=== PATIENT | female | born 1960 | race Caucasian/White ===

== ENCOUNTER 2020-04-16 11:11 | Emergency (ER) | payer SELFPAY ==
[2020-04-16] MEDS ORDERED: TETRACAINE HCL 0.5% OPH SOLN 4 ML OD ONE ×2 (12:14→17:15)
--- NOTE | 2020-04-16 12:16 | ER Document Report ---
ED Medical Screen (RME) - General Chief Complaint: Eye Problem Stated Complaint: EYE,LEG PAIN Notes: Patient is a 59-year-old white female with a history of uncontrolled diabetes on no current treatment and hyperlipidemia who presents to the emergency department the chief complaint of redness and swelling to the right eye. States she woke up that way recently. Reports her pain is a 4 out of 5 in the eye. Denies any history of contact usage or injury to the eye. No history of glaucoma. States that she is been off her diabetes medicines for quite a while, has not been checking her blood sugars regularly. She admits to blurriness in the affected eye. States her mother also noticed a few days ago that her right lower extremity was swollen and she had a red sore. She denies known fever, chills or night sweats. No vomiting or diarrhea. No headache. I have treated and performed a rapid initial assessment of this patient. A comprehensive ED assessment and evaluation of the patient, analysis of test results and completion of medical decision making process will be conducted by additional ED providers. PHYSICAL EXAMINATION: GENERAL: no acute distress. A&Ox4. Answers questions appropriately. Eyes: Right eye moderately injected conjunctiva. Extremity: Right lower extremity mildly swollen compared with the left with a erythematous area to the lateral right lower extremity with a central crusting. TRAVEL OUTSIDE OF THE [place] IN LAST 30 DAYS: No - Related Data Allergies/Adverse Reactions: levofloxacin [From Levaquin] Allergy (Unknown, Verified 04/16/20 12:07) Hives Past Medical History - Social History Chew tobacco use (# tins/day): No Frequency of alcohol use: None Drug Abuse: None Endocrine Medical History: Reports: Hx Diabetes Mellitus Type 2 Musculoskeltal Medical History: Reports Hx Arthritis - Immunizations Hx Diphtheria, Pertussis, Tetanus Vaccination: Yes Physical Exam - Vital signs Vitals: Temp Pulse Resp BP Pulse Ox 98.1 F 54 L 17 173/75 H 94 04/16/20 11:04/16/20 11:04/16/20 11:04/16/20 11:04/16/20 11:17 Course - Vital Signs Vital signs: Temp Pulse Resp BP Pulse Ox 98.1 F 54 L 17 173/75 H 94 04/16/20 11:04/16/20 11:04/16/20 11:17 04/16/20 11:17 04/16/20 11:17
[2020-04-16 13:41] LABS: ABSOLUTE BASOPHILS # (AUTO) 0.1 10^3/uL (0.0-0.2); ABSOLUTE EOSINOPHILS # (AUTO) 0.1 10^3/uL (0.0-0.6); ABSOLUTE LYMPHOCYTES (AUTO) 1.2 10^3/uL (0.5-4.7); ABSOLUTE MONOCYTES (AUTO) 0.4 10^3/uL (0.1-1.4); ABSOLUTE NEUT (AUTO) 4.8 10^3/uL (1.7-8.2); BASOPHILS % (AUTO) 0.8 % (0-2); EOSINOPHILS % (AUTO) 0.9 % (0-6); HEMATOCRIT 40.9 % (36.0-47.0); HEMOGLOBIN 14.1 g/dL (12.0-15.5); LYMPHOCYTES % (AUTO) 18.9 % (13-45); MEAN CORPUSCULAR HEMOGLOBIN 32.5 pg (27.0-33.4); MEAN CORPUSCULAR HGB CONC 34.4 g/dL (32.0-36.0); MEAN CORPUSCULAR VOLUME 95 fl (80-97); MONOCYTES % (AUTO) 5.7 % (3-13); PLATELET COUNT 163 10^3/uL (150-450); RED BLOOD COUNT 4.33 10^6/uL (3.72-5.28); RED CELL DISTRIBUTION WIDTH 12.8 % (11.5-14.0); SEGMENTED NEUTROPHILS % (AUTO) 73.7 % (42-78); TOTAL CELLS COUNTED % (AUTO) 100 %; WHITE BLOOD COUNT 6.6 10^3/uL (4.0-10.5)
[2020-04-16 13:54] LABS: ALBUMIN 3.5 g/dL (3.5-5.0); ALKALINE PHOSPHATASE 84 U/L (38-126); ANION GAP 7 (5-19); ASPARTATE AMINO TRANSFERASE 20 U/L (14-36); BILIRUBIN,TOTAL 0.8 mg/dL (0.2-1.3); BLOOD UREA NITROGEN 14 mg/dL (7-20); CALCIUM 8.7 mg/dL (8.4-10.2); CARBON DIOXIDE 29 mmol/L (22-30); CHLORIDE 97 mmol/L (98-107); GLUCOSE 395 mg/dL (75-110); POTASSIUM 4.7 mmol/L (3.6-5.0); TOTAL PROTEIN 6.8 g/dL (6.3-8.2)
[2020-04-16 14:04] LABS: INTERNATIONAL RATION (INR) 1.08; PROTHROMBIN TIME 14.2 SEC (11.4-15.4)
[2020-04-16 14:05] LABS: PARTIAL THROMBOPLASTIN TIME 31.9 SEC (23.5-35.8)
--- NOTE | 2020-04-16 16:40 | RADIOLOGY REPORT (SQ) ---
EXAM DESCRIPTION: VENOUS UNILATERAL LOWER IMAGES COMPLETED DATE/TIME: 04/16/2020 4:23 pm REASON FOR STUDY: RLE swelling COMPARISON: None. TECHNIQUE: Dynamic and static silvestre scale and color images acquired of the right leg venous system. S elected spectral images acquired with additional compression and augmentation maneuvers. The contrala teral common femoral vein and saphenofemoral junction were also imaged. Images stored on PACS. LIMITATIONS: None. FINDINGS: COMMON FEMORAL: Normal phasicity, compression and augmentation. No visualized echogenic ma terial on silvestre scale. No defects on color images. FEMORAL: Normal compression and augmentation. No visualized echogenic material on silvestre scale. No defe cts on color images. POPLITEAL: Normal compression, augmentation. No visualized echogenic material on silvestre scale. No defec ts on color images. CALF VESSELS: Normal compression, augmentation. No visualized echogenic material on silvestre scale. No de fects on color images. GSV and SSV: Normal compression, augmentation. No visualized echogenic material on silvestre scale. No def ects on color images. ANY DEEP VENOUS INSUFFICIENCY: Not evaluated. ANY EVIDENCE OF POPLITEAL CYST: No. OTHER: No other significant finding. CONTRALATERAL COMMON FEMORAL VEIN AND SAPHENOFEMORAL JUNCTION: Normal phasicity, compression and augmentation. No visualized echogenic material on silvestre scale. No de fects on color images. IMPRESSION: NO EVIDENCE DVT OR SVT IN THE RIGHT LEG. TECHNICAL DOCUMENTATION: JOB ID: [id number] 2010 [employer]- All Rights Reserved Reading location - IP/workstation name: [email or web address]
--- NOTE | 2020-04-16 17:31 | ER Document Report ---
ED General - General Chief Complaint: Eye Problem Stated Complaint: EYE,LEG PAIN Time Seen by Provider: 04/16/20 17:09 Primary Care Provider: AAR TORRES DO [ACTIVE STAFF] - Follow up as needed Notes: 59-year-old female with past medical history of diabetes mellitus presenting today with a wound on her right lower extremity. States her mom noticed it a couple days ago. States that she has diabetic neuropathy and cannot feel anything in her feet. She also reports some swelling of her right lower extre mity. She also states that she has had right thigh pain since Tuesday. States she has pain moving her eyes to the right. Her eyes also been injected. She also notes that she was with some discharge associated with her her eye as well. She does not have a primary care provider. Has not taken her diabetes medication. TRAVEL OUTSIDE OF THE [place] IN LAST 30 DAYS: No - Related Data Allergies/Adverse Reactions: levofloxacin [From Levaquin] Allergy (Unknown, Verified 04/16/20 12:07) Hives Past Medical History - Social History Smoking Status: Former Smoker Chew tobacco use (# tins/day): No Frequency of alcohol use: None Drug Abuse: None Family History: Reviewed & Not Pertinent, Other - hx of VT in brother and deat at age 42 - Past Medical History Cardiac Medical History: Reports: Hx Hypercholesterolemia, Hx Hypertension Endocrine Medical History: Reports: Hx Diabetes Mellitus Type 2 Musculoskeletal Medical History: Reports Hx Arthritis Past Surgical History: Reports: Hx Appendectomy, Hx Hysterectomy - Immunizations Hx Diphtheria, Pertussis, Tetanus Vaccination: Yes Review of Systems - Review of Systems Constitutional: No symptoms reported EENT: See HPI Cardiovascular: No symptoms reported Respiratory: No symptoms reported Gastrointestinal: No symptoms reported Genitourinary: No symptoms reported Female Genitourinary: No symptoms reported Musculoskeletal: No symptoms reported Skin: See HPI Hematologic/Lymphatic: No symptoms reported Neurological/Psychological: No symptoms reported Physical Exam - Vital signs Vitals: Temp Pulse Resp BP Pulse Ox 98.1 F 54 L 17 173/75 H 94 04/16/20 11:17 04/16/20 11:17 04/16/20 11:17 04/16/20 11:17 04/16/20 11:17 - Notes Notes: Adult General: GENERAL: Alert, interacts well. No acute distress HEAD: Normocephalic, atraumatic EYES: Right eye with conjuctiva injected. No swelling of eyelid, no limbic injec tion, no discharge. No foreign bodies noted. Pain wtih right eye tracking to the right. Pupils equal, round and reactive to light. Extraocular movements intact. ttp along superior orbit and medial lower orbit. No discharge noted ENT: Airway patent. Nares patent. NECK: Full range of motion. Supple. Trachea midline. No lymphadenopathy. LUNGS: Clear to auscultation bilaterally, no wheezes, rales, or rhonchi. No respiratory distress. Nontender chest wall. HEART: Regular rate and rhythm. No murmurs, rubs or gallops. ABDOMEN: Soft, nontender. Nondistended. GENITOURINARY: Deferred EXTREMITIES: 1+ pitting edema of right leg. 3 cm superficial ulcer on right lateral lower leg. Surrounding erythema, no warmth, no tendrness. Moves all 4 extremities spontaneously. Normal radial and dorsal pedis pulses bilaterally. No cyanosis. BACK: Moves all extremities with full range of motion. NEUROLOGICAL: Alert and oriented x3. Normal speech. Strength 5/ 5 in all extremities. PSYCH: Normal affect, normal mood. SKIN: See above - HEENT Visual acuity- Right eye: 20/40 Visual acuity- Left eye: 20/25 Visual acuity- Both eyes: 20/25 Corrective lenses worn: Yes Course - Re-evaluation Re-evalutation: 04/16/20 20:18 Patient with a wound on the lateral aspect of her right leg. I will go ahead and treat for a diabetic ulcer. Her ultrasound showed no DVT. Fluorescein stain and wood lamp performed. No foreign bodies or ulcers noted. Slit lamp exam also showed no foreign bodies or ulcerations. As she has pain with lateral eye movement, I will go ahead and order a CT of the orbits to evaluate for orbital cellulitis. She has no erythema or redness surrounding her eye. CT scan shows inflammation of the right eye. pressure of right eye is 16. I contacted Opthalmology consulting software engineer Dr. Torres to discuss results. He recommends at this time treating for bacterial conjunctivitis and he will see patient in the office tomorrow. Insulin and fluids ordered for patients sugars. Patient has concerns as she has no insurance. I discussed with her the importance of managing her blood sugars and establishing care with a primary care physician to manage her diabetes and having follow up for her wound and blood sugars. I also discussed the importance of following up with ophthalmology. Patient acknowledges and verbalizes understanding of instructions and plan. All questions answered. - Vital Signs Vital signs: Temp Pulse Resp BP Pulse Ox 98.6 F 84 16 110/74 98 04/16/20 21:20 04/16/20 21:20 04/16/20 21:20 04/16/20 21:20 04/16/20 21:20 - Laboratory Result Diagrams: 04/16/20 13:08 04/16/20 13:08 Laboratory results interpreted by me: 04/16/20 04/16/20 13:07 13:08 Sodium 133.0 L Chloride 97 L Glucose 395 H POC Glucose 391 H Discharge - Discharge Clinical Impression: Diabetic leg ulcer Diabetes Qualifiers: Diabetes mellitus type: type 2 Diabetes mellitus senior care insulin use: unspecified long term care social worker insulin use status Diabetes mellitus complication status: with skin complications Conjunctivitis Qualifiers: Conjunctivitis type: acute Acute conjunctivitis type: unspecified Laterality: right Qualified Code(s): H10.31 - Unspecified acute conjunctivitis, right eye Condition: Stable Disposition: HOME, SELF-CARE Instructions: Antibiotic Therapy ([facility]), Conjunctivitis ([facility]), Eyedrop Use ([facility]) Additional Instructions: You have an ulcer on your right leg. You have been prescribed antibiotics for this. Please take them as prescribed. You have also been prescribed eye drops for conjunctivitis. Please take them as prescribed. Call tomorrow morning and schedule an appointment with the opthalmoloigst for follow up of your conjunctivitis for further evaluation. The number was provided to you. They will see you tomorrow. Please establish care with a primary care provider to manage your diabetes. You may return to the emergency department if you develop worsening or new symptoms. Prescriptions: Cephalexin Monohydrate [Keflex 500 mg Capsule] 500 mg PO Q6H 7 Days #28 capsule Polymyxin B Sulf/Trimethoprim [Polytrim Eye Drops] 10 ml OP QID #1 bottle Referrals: ARA TORRES DO [ACTIVE STAFF] - Follow up as needed
--- NOTE | 2020-04-16 19:50 | RADIOLOGY REPORT (SQ) ---
EXAM DESCRIPTION: CT FACIAL AREA WITH IMAGES COMPLETED DATE/TIME: 04/16/2020 7:28 pm REASON FOR STUDY: rule out orbital cellulitis COMPARISON: None. TECHNIQUE: Post contrast images through the facial bones and orbits windowed for bone and soft tissu e. Additional coronal and sagittal reconstructed images reviewed. All images stored on PACS. All CT scanners at this facility use dose modulation, iterative reconstruction, and/or weight based d osing when appropriate to reduce radiation dose to as low as reasonably achievable (ALARA). [facility]: Dose Right [facility]: CareDose [facility]: Dose Right [facility]: Teradose 4D [facility]: Indexing CONTRAST TYPE AND DOSE: contrast/concentration: Isovue 350.00 mmol/ml; Total Contrast Delivered: 6.5 ml; Total Saline Delivered: 28.7 ml RENAL FUNCTION: BUN 14 creatinine 0.67 RADIATION DOSE: CT Rad equipment meets quality standard of care and radiation dose reduction techniq ues were employed. CTDIvol: 30.4 mGy. DLP: 589 mGy-cm. . LIMITATIONS: None. FINDINGS: FACIAL BONES: No fracture or bone lesion. ORBITS: Intact, no fracture. Symmetric intact globes. No intraorbital soft tissue swelling. There is some soft tissue swelling around the right eye and possibly the left PARANASAL SINUSES: Clear. No significant mucosal thickening, mass or fluid. No nasal polyps. Maxilla ry sinus outlets are patent. SOFT TISSUES: Periorbital soft tissue swelling. INFERIOR BRAIN: Limited view. No acute findings. OTHER: No other significant finding. IMPRESSION: Periorbital soft tissue swelling. No evidence of inflammatory changes within either orb it. TECHNICAL DOCUMENTATION: JOB ID: [id number] Quality ID # [id number]: Final reports with documentation of one or more dose reduction techniques (e.g., Au tomated exposure control, adjustment of the mA and/or kV according to patient size, use of iterative reconstruction technique) 2010 [employer]- All Rights Reserved Reading location - IP/workstation name: [email or web address]
[2020-04-16] MEDS ORDERED: INSULIN GLARGINE,HUM.REC.ANLOG 1,000 UNIT/10 ML VIAL SUBCUT ONE (20:35)
[2020-04-16] MEDS ORDERED: NORMAL SALINE 1000 ML 1,000 ML IV ONE (20:38)
[2020-04-16 21:22] VITALS: BP 110/74
== END 2020-04-16 21:20 | disposition home or self-care (01) ==
LOC: ER 11:11
DX: E11.622 Type 2 diabetes mellitus with other skin ulcer (principal); L97.919 Non-pressure chronic ulcer of unspecified part of right lower leg with unspecified severity; H10.31 Unspecified acute conjunctivitis, right eye; E11.69 Type 2 diabetes mellitus with other specified complication; M79.604 Pain in right leg; E78.00 Pure hypercholesterolemia, unspecified; I10 Essential (primary) hypertension
CPT/HCPCS: 99283; 36415; 82962; 85025; 85610; 85730; 80053; 93971; 70487; J1815; J3490